=== PATIENT | male | born 1950 | race Caucasian/White ===

== ENCOUNTER → 2021-07-15 16:01 | Outpatient (CLI) | payer MEDICARE, BC, SELFPAY ==
--- NOTE | 2021-07-15 16:20 | CT_ITS ---
STUDY: CT LEFT LOWER EXTREMITY WITHOUT CONTRAST REASON FOR EXAM: Left knee osteoarthritis, surgical planning. TECHNIQUE: Transaxial CT imaging of the lower extremity was performed. Coronal and sagittal images were reformatted. Individualized dose optimization techniques were used for this CT. COMPARISON: None. FINDINGS: Knee: There are marginal osteophytes, subchondral sclerosis and moderate to severe joint space narrowing of the medial femorotibial compartment (coronal reconstruction 24). There are small marginal osteophytes of the lateral femorotibial compartment with preservation of joint space. There are marginal osteophytes and mild joint space narrowing of the patellofemoral articulation (sagittal reconstruction 51). There are small marginal osteophytes at the medial aspect of the proximal tibiofibular articulation (coronal reconstruction 42). There is a small joint effusion. The quadriceps tendon is grossly normal. The patellar tendon is grossly normal. Normal Hoffa''s fat pad. There is a popliteal cyst (sagittal reconstructions 21-28). There is vascular calcification. Hip: There are very small marginal osteophytes of the femoral head, subchondral cystic change of the lateral acetabulum and mild joint space narrowing of the left hip joint (coronal reconstruction 70). Ankle: Normal tibiotalar, posterior subtalar, talonavicular and calcaneocuboid articulations. There is an os trigonum. CT/Extremity Lower without Contra IMPRESSION: Left knee osteoarthritis. Electronically Signed: Huy Reyes MD at 10:17 EDT Tel , Service support ,
== END ==
PROVIDERS: PCP Internal Medicine Infectious Disease; Referring Provider Orthopaedic Surgery; Visit Provider Orthopaedic Surgery
DX: M17.12 Unilateral primary osteoarthritis, left knee (principal)
CPT/HCPCS: 73700

== ENCOUNTER 2021-07-26 05:13 | Day surgery (SDC) | payer MEDICARE, BC, SELFPAY ==
--- NOTE | 2021-07-15 14:03 | EKG12_ITS ---
Test Reason : PREOP Blood Pressure : / mmHG Vent. Rate : 069 BPM Atrial Rate : 069 BPM P-R Int : 152 ms QRS Dur : 102 ms QT Int : 396 ms P-R-T Axes : 015 021 010 degrees QTc Int : 424 ms Normal sinus rhythm Normal ECG Confirmed by KIARA TABARES, ANTONIA ([id number]), international editorial producer OPAL BOOTH ([id number]) on 07/20/2021 8:15:05 AM Referred By: Huang Bautista Confirmed By:DINORA CRAIG MD
[2021-07-15 15:01] LABS: Hemoglobin 14.8 g/dL (13.0-16.5); Mean Corp Hgb Conc 32.2 g/dL (32-36); Mean Corpuscular Hgb 29.8 pg (27.0-32.0); Mean Corpuscular Volume 92.6 fL (80-94); Mean Platelet Vol. 8.9 fl (6.2-12.0); Platelet Count 221 K/mm3 (150-450); RBC Distribution Width CV 13.7 % (11.6-14.6); RBC Distribution Width SD 46.5 fl (35.1-43.9); Red Blood Count 4.97 M/mm3 (4.6-6.2); White Blood Count 8.2 K/mm3 (4.4-11.0)
[2021-07-15 15:13] LABS: Magnesium 2.5 mg/dL (1.6-2.6)
[2021-07-15 15:17] LABS: Anion Gap 4 (5-15); BUN 12 mg/dL (7-18); BUN/Creat Ratio 11.4 RATIO (10-20); Calcium,Total 8.6 mg/dL (8.5-10.1); Chloride 106 mmol/L (98-107); Creatinine, Serum 1.05 mg/dL (0.70-1.30); EST Glomerular Filtration Rate 75 mL/min (>60); Est Glom Filt Rate - Afr Amer 90 mL/min (>60); Glucose 90 mg/dL (74-106); Sodium Level 140 mmol/L (136-145)
[2021-07-15 15:41] LABS: Hemoglobin A1c 5.2 % (3.8-5.6)
[2021-07-26] VITALS (11 sets, daily range): BP systolic 120–150; BP diastolic 73–87; PULSE 57–103; RESP 16; TEMP 36.1–36.8; O2SAT 92–97; BMI 33.0
--- NOTE | 2021-07-26 | KNEE_PTH ---
PATIENT: NATALIE TIWARI LOC: [facility] U#:[id number] AGE/SX: 70/M ROOM: RE07/26/[address]: Dr. Huang Bautista DO : 1950 BED: DIS: 07/26/2021 SPEC #: [id number] RECD: 07/26/21 14:18 STATUS: RONALD REQ #: [id number] GIOVANA: 07/26/21 00:[address]: Huang Bautista DEPT: SURGICAL PATHOLOGY RECD BY: Silver Espino ENTERED: 07/27/21 11:59 SP TYPE: TOTAL KNEE OTHR DR: Dr. Sakina Eisenberg MD Tissues: Knee, NOS Procedures: Decalcification bone/plaque Surgery Specimen Level IV HEADER OPERATION: ERAS, total knee replacement robotic arm assist PRE-OP DIAGNOSIS: Primary osteoarthritis TISSUE SUBMITTED: Left knee bone MICROSCOPIC DIAGNOSIS Left knee bone, total knee replacement/resection: Pieces of bone with degenerative osteoarthritic changes. Fibroadipose tissue, fibroconnective tissue and reactive synovial tissue. SJ:gume 07/30/2021 MICROSCOPIC DESCRIPTION Slides are reviewed. GROSS DESCRIPTION Received is one container designated left knee bone. The specimen consists of multiple fragments of bhandari-yellow bone measuring in aggregate 16 x 13 x 2 cm. Also in the specimen container are multiple fragments of yellow-white soft tissue measuring in aggregate 6 x 3 x 0.8 cm. A number of bony fragments contain articular surfaces consistent with tibial plateau and femoral condyle and displaying prominent osteophyte formation, eburnation, and bone erosion. Open Die Inspector sections are submitted in two cassettes as follows: 1 - soft tissue, 2 - bone after decalcification. / AM:gume 07/27/21 TC:[facility]: [id number], [id number]
[2021-07-26] MEDS: Acetaminophen 500 MG Tablet 1000 MG PO ×2 (06:13→14:06)
[2021-07-26] MEDS: Gabapentin 600 MG Tablet PO (06:13)
[2021-07-26] MEDS: Lactated Ringers 1,000 ML 125 ML IV (06:13)
[2021-07-26 06:51] LABS: Bedside Glucose 81 mg/dL (70-110)
[2021-07-26] MEDS: Cefazolin 2 GM in 0.9% Normal Saline 100 ML IV (07:41)
--- NOTE | 2021-07-26 07:42 | RAD_ITS ---
STUDY: X-RAY - LEFT KNEE REASON FOR EXAM: Male, 70 years old. New total knee arthroplasty. TECHNIQUE: 2 view(s) of the knee. COMPARISON: CT of the knee dated 07/15/2021. FINDINGS: Total knee arthroplasty (3 component) in anatomic alignment with expected soft tissue swelling, soft tissue and intra-articular gas and skin debbie. No complicating features. RAD/Knee 1 or 2 Views IMPRESSION: Total knee arthroplasty in anatomic alignment without complicating features. Electronically Signed: Amol Ling MD at 10:38 EDT , Service support ,
--- NOTE | 2021-07-26 09:43 | OP.PCM_ITS ---
Report of Operation Date of Procedure: 07/26/21 Pre-Operative Diagnosis: OA left knee Post-Operative Diagnosis: same Surgery/Procedure Performed:: Left TKR Description of Surgical Findings:: Report of Operation Date of Procedure: Preoperative Diagnosis: [ ] knee primary osteoarthritis Postoperative Diagnosis: [ ] knee primary osteoarthritis Operation: Robotic Assisted Knee Total Arthroplasty, [ left ] knee Surgeon: Dr Huang Bautista DO [employer] Supervisor: Sonia Blevins PA-C Anesthesia: spinal Anesthesiologist: Duy Gaitan M.D. Findings: Stable knee with good patella tracking Specimen(s): Bony cuts Complications: No intraoperative complications Estimated Blood Loss: 40 cc IV Fluids: 1000 cc crystalloid Implants Used: 1. [employer] Triathlon CR press-fit size 5 femur 2. [place] Triathlon size 6 tibia 3. 38 mm patella 4. 9 mm CS polyethylene Brief History Operative Indications: [ (70 y/o, male) ] with history of [ left ] knee osteoarthrosis with radiographic findings with loss of joint space, osteophyte formation and subchondral sclerosis. Failed conservative measures as mentioned in the H&P. Discussion of total knee arthroplasty as well as risk and benefits were discus sed with the patient including but not limited to blood loss, DVTs, PEs, neurovascular damage, general risk of anesthesia including loss of life, and stiffness or instability were also discussed with the patient. Patient demonstrated understanding and was able to sign informed consent. Procedure: On the date of procedure, patient's [ left ] lower extremity was marked in the preoperative area. The patient was then taken back to the operating room where that patient was placed on the table in the supine position. All bony prominences were identified and well-padded. Anesthesia assumed control of the C-spine and airway throughout the remainder of the procedure. A tourniquet was placed on the [left ] upper thigh and the leg was prepped in a sterile fashion. The surgeon then scrubbed at this time. Upon reentering the room, the [ left ] lower extremity was draped in a standard orthopedic fashion. A timeout was then called and everyone agreed upon the side, the site, the procedure to be performed, patient's identity and antibiotics given. Esmarch bandage was used to exsanguinate the extremity and the tourniquet was placed up to 300 mmHg with the knee in flexion. A midline skin incision was made and a sharp dissection was taken down through skin, subcutaneous tissue and fat. The standard medial parapatellar incision was made and the patella was subluxed laterally. An appropriate deep MCL release was done and the fat pad was resected. Our attention was then directed to the patella. The patella was everted and a flat resection was made. The knee was then flexed up and 2 femoral pins were placed inside the incision and 2 tibial pins were placed outside the incision in the medial tibia bicortically. Once this was completed, the 2 checkpoints in the femur and tibia were placed. Knee was then flexed up and the bony landmarks were registered. Once the was completed, the knee taken through range of motion and manually stressed allowing us to plan for an appropriate tibial cut. The robotic arm was brought into the field sterilely and checkpoint and saw were registered. Based on the patient's deformity, the tibial cut was made in [ 2 degrees varus ]. At this time, the tensioner was then placed in the joint and ligament tension was checked at 90 degrees and full extension. Based on the patient's ligamentous tension, appropriate adjustments were made to the operative plan and ligament releases were done. Once we were happy with our operative plan with balanced flexion and extension gaps, our attention was directed to the femur. The robot was brought into the field sterilely and registered. Posterior condylar cuts, anterior chamfer cuts and anterior cuts were appropriately made for a [ size 5 ] femur. When these were completed, the saws were switched out in the distal femoral and posterior chamfer cuts were made. Protecting the soft tissue throughout this time. A [ size 6 ] base plate was selected. The knee was flexed to 90 degrees and soft tissues and posterior osteophytes were removed from the joint. 40 cc of the periarticular injection was injected into the posterior medial corner of the joint. The appropriate trials were then placed on the femur and tibia. A trial polyethylene was trialed to ensure proper balancing and stability of the knee. The appropriate tibial internal rotation was then marked with a bovie. Our attention was then directed to the patella. The lug holes were drilled and the patella trial was placed. Patellar tracking was checked and deemed appropriate. Once we were happy, lug holes were drilled for the femur and trial components were removed. The tibia was subluxed and pinned into place and the keel was punched and drilled appropriately. Final components were verified and opened. The wound was copiously irrigated with normal saline. The components were impacted into place with the tibia, femur and finally the patella. The trial poly component was placed and the knee was placed in full extension. The tracking, alignment and balance were verified and a [ 9 mm CS ] polyethylene component was placed. Once the final components were placed an Irrisept lavage was performed and the wound was copiously irrigated with normal saline solution and the periarticular injection was given. the wound was closed in a layer-yang fashion using #1 vicryl interrupted sutures for the arthrotomy, 2-0 interrupted vicryl suture for the subcuticular layer and debbie for final skin closure. A sterile compressive dressing was then placed. The patient was then awakened from anesthesia, transferred to the [place] and transferred to the PACU for recovery. My physician endodontic assistant was a vital part of this case. He was important in appropriate retraction during the case, and protection of soft tissues during bony cuts. His intimate knowledge of the case and my steps aided in safe and expedient completion of the procedure as well as appropriate position of the leg during the case. He was also vital in assisting with closure under my direct supervision. Due to the complexity of this case, robotic arm was used to assist in the surgery to improve accuracy and clinical outcomes. Post-op Plan: DVT ppx; ASA 81 mg BID, thigh high compression stockings Follow up: in office in 2 weeks for wound check PT: to start POD #0 at hospital, outpatient PT should be arranged. Preoperative antibiotic: Ancef 2 grams IV Huang Bautista DO Surgeon: Huang Bautista commercial litigation associate: Sonia Blevins Type of Anesthesia: Spinal Anesthesiologist: Duy Gaitan Admjuanito VTE Documentation VTE Present on Admission: No VTE Mechan Device Prophylaxis: SCD's and Thigh High DENNISE Hose VTE Pharm Prophylaxis ordered?: Yes
[2021-07-26] MEDS: oxyCODONE 5 MG Tablet PO ×2 (13:23→14:05)
[2021-07-26] MEDS: Cefazolin 1 GM/50 ML BAG IV (14:06)
[2021-07-26] MEDS: Ondansetron 4 MG/2 ML Vial IV (15:13)
== END 2021-07-26 16:20 | disposition home or self-care (01) ==
LOC: SDC 05:14 → AC 05:16
PROVIDERS: Anesthesiology; PCP Internal Medicine Infectious Disease; Referring Provider Orthopaedic Surgery; Visit Provider Orthopaedic Surgery
PROC: 0SRD0JZ Replacement of Left Knee Joint with Synthetic Substitute, Open Approach (ICD-10-PCS; CPT 27447; principal; 2021-07-26 07:00)
DX: M17.12 Unilateral primary osteoarthritis, left knee (principal); E66.9 Obesity, unspecified; Z68.31 Body mass index [BMI] 31.0-31.9, adult; F17.200 Nicotine dependence, unspecified, uncomplicated
CPT/HCPCS: 01402; 27447; S2900; 36415; 73560; 80048; 82962; 83036; 83735; 85027; 87077; 87081; 88305; 88311; 93005; 97162; C1776; J7120; A4216; J2405